=== PATIENT | male | born 1955 ===

== ENCOUNTER 2017-07-26 15:10 | Emergency (ER) | payer SELFPAY ==
[~2017-07-26] VITALS: Ht 180.3 cm; Wt 100.0 kg
[2017-07-26 15:34] VITALS: BP 134/91
== END 2017-07-26 19:30 | disposition left against medical advice (07) | DRG 951 ==
LOC: ED 15:10 → LWOBS 19:27
DX: Z91.19 Patient's noncompliance with other medical treatment and regimen (principal)